=== PATIENT | male | born 1990 | race Two or more races ===

== ENCOUNTER 2018-11-13 21:28 | Emergency (ER) | payer OTHER ==
[~2018-11-13] VITALS: Ht 180.3 cm; Wt 113.4 kg
--- NOTE | 2018-11-13 21:25 | NUR ---
Note undone in EDM - 11/13/18 at 2251 by KASI ED Nurse Note: pt brought in by [employer] and [employer] team, c/o SI, per [employer] team statement, pt wanted to kill himself via shooting himself w/ pt's dad scooter. pt states he has hx suicidal attempt which was last year. pt currently is homeless but pt used to live with pt's mother 3 days ago. pt AA&ox4, gcs=15, irritable, voicing SI, denies HI/VH/AH, skin warm and dry, resp even and unlabored on RA, -n/v/d, ambulates w/ steady gait, vSS, will cont monitor.
[~2018-11-13 21:28] MED LIST: ALPRAZOLAM0.5 MG PO; SEROQUEL400 MG ORAL; TRAZODONE HCL100 MG ORAL; WELLBUTRIN SR150 M1 PO
--- NOTE | 2018-11-13 21:28 | NUR ---
ED Nurse Note: pt brought in by [employer] and [employer] team, c/c SI. Per [employer] team statement, pt called 911 because pt had suicidal ideation and wanted to kill himself via shooting himself w/ pt's dad scooter. pt states he has hx suicidal attempt which was last year by "taking bunch of pills". pt currently is homeless but per [employer] team, pt used to live with pt's mother 3 days ago and ran away. pt AA&ox4, gcs=15, irritable but calm and cooperative, voicing SI, denies HI/VH/AH, skin warm and dry, resp even and unlabored on RA, -n/v/d, ambulates w/ steady gait, vSS, sinus tach on court recording monitor, will cont monitor.
--- NOTE | 2018-11-13 21:44 | Emergency Room Report ---
History of Present Illness General Chief Complaint: Behavioral Complaint Source: Patient, Caregiver, Law Enforcement Present Illness HPI This is a 28-year-old male with history of anxiety and also drug abuse. He presents with chief complaint of suicidal thoughts. Patient is homeless and called [address] He told police that he is suicidal want to kill himself. He said that he will take his father's gun and go to [facility] shoot himself. He was initially placed on a 5150 hold. During the intake process at the station, he became agitated and was banging his head against the stretcher and was screaming. They brought him here instead. Patient said that he wanted to go use the restroom but they would not let him so he became agitated. Patient is calm now. Does express suicidal thoughts. Denies any homicidal thought. Denies any hallucination or delusion. Allergies: Coded Allergies: No Known Allergies (Unverified , 11/13/18) Patient History Past Medical History: see triage record, old chart reviewed, psych hx Past Surgical History: none Family History: none Social History: tobacco use, ETOH, drug use, lives alone Immunizations: other Reviewed Nursing Documentation: PMH: Agreed; PSxH: Agreed Nursing Documentation-PMH Past Medical History: No History, Except For Review of Systems ENT: Denies: sore throat Cardiovascular: Denies: chest pain, palpitations Gastrointestinal/Abdominal: Denies: nausea, vomiting, diarrhea Musculoskeletal: Denies: back problems Skin: Denies: rash Psychiatric: Reports: prior hx, anxiety, suicidal/homicidal ideations Neurological: Denies: BUCKNER, seizures All Other Systems: negative except mentioned in HPI Physical Exam Vital Signs Date Time Temp Pulse Resp B/P (MAP) Pulse Ox O2 Delivery O2 Flow Rate FiO2 11/13/18 21:20 98.6 104 16 163/107 98 Room Air vitals with high blood pressure Sp02 EP Interpretation: reviewed, normal General Appearance: alert/responsive, no apparent distress, non-toxic Head: normocephalic, atraumatic Eyes: PERRL, EOMI ENT: oropharynx normal Neck: supple/symm/no masses Respiratory: effort normal, no rhonchi, no wheezing Cardiovascular: no murmur, gallop, rub Gastrointestinal: non-tender, no mass, non-distended, no rebound/guarding, normal bowel sounds Musculoskeletal: gait & station normal Neurologic: oriented x3, sensory intact, motor strength/tone normal Skin: no rash, normal palpation Medical Decision Making Diagnostic Impression: Primary Impression: Suicidal behavior Qualified Codes: R46.89 - Other symptoms and signs involving appearance and behavior Additional Impression: Methamphetamine abuse ER Course Patient with suicidal thoughts with specific plan. He is calm here. Did not need to be on restraint here. He is currently on a hold with a 5150 by police. He is medically cleared for psychiatric transfer. Lab Results Impression labs unremarkable Last Vital Signs Date Time Temp Pulse Resp B/P (MAP) Pulse Ox O2 Delivery O2 Flow Rate FiO2 11/13/18 21:20 98.6 104 16 163/107 98 Room Air Status: improved Disposition: XFER TO PSYCH HOSP/UNIT Condition: Stable Shree Hansen MD Nov 13, 2018 21:44
[2018-11-13 22:00] VITALS: BP 144/99
[2018-11-13] MEDS ORDERED: DiphenhydrAMINE 50mg/ml Inj IM ONE (22:15)
[2018-11-13] MEDS ORDERED: Haloperidol 5mg/ml Inj IM ONE (22:15)
--- NOTE | 2018-11-13 22:17 | NUR ---
ED Nurse Note: pt belongings in locker No. 1 and 2.
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
[2018-11-13 22:21] LABS: BASOPHILS % (AUTO) 1.5 % (0.0-2.0); EOSINOPHILS % (AUTO) 2.1 % (0.0-3.0); HEMATOCRIT 42.5 % (42.0-52.0); HEMOGLOBIN 14.5 G/DL (14.2-18.0); MEAN CORPUSCULAR VOLUME 84 FL (80-99); MONOCYTES % (AUTO) 7.4 % (1.0-10.0); NEUTROPHILS % (AUTO) 58.1 % (45.0-75.0); PLATELET COUNT 416 K/UL (150-450); RED BLOOD COUNT 5.06 M/UL (4.70-6.10); RED CELL DISTRIBUTION WIDTH 12.8 % (11.6-14.8); WHITE BLOOD COUNT 16.2 K/UL (4.8-10.8)
[2018-11-13 22:31] LABS: ANION GAP 14 mmol/L (5-15); BLOOD UREA NITROGEN 15 mg/dL (7-18); CALCIUM 9.3 MG/DL (8.5-10.1); CARBON DIOXIDE 24 MMOL/L (21-32); CHLORIDE 100 MMOL/L (98-107); CREATININE 1.1 MG/DL (0.55-1.30); POTASSIUM 3.6 MMOL/L (3.5-5.1); SODIUM 138 MMOL/L (136-145)
[2018-11-13 22:35] LABS: ALANINE AMINOTRANSFERASE 65 U/L (12-78); ALBUMIN 3.7 G/DL (3.4-5.0); ALBUMIN/GLOBULIN RATIO 0.8 (1.0-2.7); ALKALINE PHOSPHATASE 110 U/L (46-116); ASPARTATE AMINO TRANSFERASE 32 U/L (15-37); BILIRUBIN,TOTAL 0.5 MG/DL (0.2-1.0)
[2018-11-13 22:42] LABS: APPEARANCE,URINE SLIGHTLY CLOUDY; BILIRUBIN, URINE NEGATIVE (NEGATIVE); COLOR,URINE AMBER; GLUCOSE, URINE (UA) NEGATIVE (NEGATIVE); KETONES,URINE 1+ (NEGATIVE); LEUKOCYTE ESTERASE ,URINE 1+ (NEGATIVE); NITRITE,URINE NEGATIVE (NEGATIVE); PH,URINE 5 (4.5-8.0); PROTEIN,URINE 1+ (NEGATIVE); UROBILINOGEN,URINE 1 MG/DL (0.0-1.0)
--- NOTE | 2018-11-13 22:54 | NUR ---
ED Nurse Note: pt provided w/ warm blanket for comfort, given sandwich and juice.
--- NOTE | 2018-11-13 23:01 | NUR ---
ED Nurse Note: report given Cherry STEVENS and endorsed care, pt sleeping at this time, vss, resp even and unlabored on RA.
[2018-11-14] VITALS: BP 137/94
--- NOTE | 2018-11-14 01:05 | NUR ---
ED Nurse Note: PT IS COOPERATIVE AND ASLEEP IN BED. OFFERED PT A SANDWHICH AND REFUSED AT THE MOMENT
--- NOTE | 2018-11-14 01:40 | NUR ---
ED Nurse Note: ATTEMPTED TO CALL [facility], NO ANSWER. WILL REATTEMPT
--- NOTE | 2018-11-14 01:50 | NUR ---
ED Nurse Note: TELEPHONE REPORT GIVEN TO BARBIE FROM [employer]
[2018-11-14 02:42] VITALS: BP 112/71
--- NOTE | 2018-11-14 02:42 | NUR ---
ED Nurse Note: [facility] at bedside, pt aox4, pt skin intact, pt shows no acute signs odf distress. pt is clam adn cooperative. pt iv site removed, all pt belongings given to [facility].
== END 2018-11-14 02:42 ==
LOC: EDBD 21:28 → EMR 22:43
DX: R45.851 Suicidal ideations (principal); F15.10 Other stimulant abuse, uncomplicated; Z59.0 Homelessness; F41.9 Anxiety disorder, unspecified; R45.850 Homicidal ideations
CPT/HCPCS: 36415; 80053; 80307; 80329; 81003; 85025; 96372; 99285; J1200; J1630

== ENCOUNTER 2019-12-10 02:30 | Emergency (ER) | payer OTHER ==
[2019-12-10] VITALS (8 sets, daily range): BP systolic 76–139; BP diastolic 61–85
[~2019-12-10] VITALS: Ht 175.3 cm; Wt 90.7 kg
--- NOTE | 2019-12-10 02:42 | NUR ---
ED Nurse Note: Patient MIRIAM [id number] from street c/o SI. Per EMS, patient wants to kill himself by injecting himself with windex. Pt also reports using of heroin. Denies homicidal ideation. Has hx of bipolar. Pt is cooperative and non combative. Pt is on 5150 hold per [employer]. Suicide precaution observed. ERMD at bedside.
--- NOTE | 2019-12-10 02:45 | NUR ---
ED Nurse Note: Pt belongings was placed in Locker #1.
--- NOTE | 2019-12-10 02:46 | Emergency Room Report ---
History of Present Illness General Chief Complaint: Behavioral Complaint Source: Patient, EMS, Law Enforcement Present Illness HPI This is a 29-year-old male with a history of bipolar. He also has a history of heroin abuse. Patient presents with chief complaint of suicidal thoughts. He called [address] He said that he want to kill himself by injecting himself with Windex. Because of that, please place him on a 5150 hold. Patient denies any auditory elucidation. He denies any homicidal thoughts. He has suicidal thoughts. Admits to using heroin. Patient claimed that he injected Windex into his vein. Allergies: Coded Allergies: No Known Allergies (Unverified , 11/13/18) Patient History Past Medical History: see triage record, old chart reviewed, bipolar Past Surgical History: none Family History: none Social History: drug use Immunizations: other Reviewed Nursing Documentation: PMH: Agreed; PSxH: Agreed Nursing Documentation-PMH History Of Psychiatric Problem: Yes - bipolar Review of Systems ENT: Denies: sore throat Cardiovascular: Denies: chest pain, palpitations Gastrointestinal/Abdominal: Denies: nausea, vomiting, diarrhea Musculoskeletal: Denies: back problems Skin: Denies: rash Neurological: Denies: BUCKNER, seizures All Other Systems: negative except mentioned in HPI Physical Exam Vital Signs Date Time Temp Pulse Resp B/P (MAP) Pulse Ox O2 Delivery O2 Flow Rate FiO2 12/10/19 02:33 98.4 102 15 132/84 (100) 99 Room Air Vitals normal Sp02 EP Interpretation: reviewed, normal General Appearance: alert/responsive, no apparent distress, non-toxic Head: normocephalic, atraumatic Eyes: PERRL, EOMI ENT: oropharynx normal Neck: supple/symm/no masses Respiratory: effort normal, no rhonchi, no wheezing Cardiovascular: no murmur, gallop, rub Gastrointestinal: non-tender, no mass, non-distended, no rebound/guarding, normal bowel sounds Musculoskeletal: gait & station normal Neurologic: oriented x3, sensory intact, motor strength/tone normal Skin: no rash, normal palpation Medical Decision Making Diagnostic Impression: Primary Impression: Suicidal ideation Additional Impressions: Heroin abuse Methamphetamine abuse ER Course Patient presents with suicidal thoughts and questionable suicidal attempt. Patient is currently on a 5150 hold. Once he is medically cleared he will be sent to a psychiatric facility. Patient been comfortable in the ER. He ate and and drink without any problem. He slept. He is medically clear for psychiatric evaluation. Last Vital Signs Date Time Temp Pulse Resp B/P (MAP) Pulse Ox O2 Delivery O2 Flow Rate FiO2 12/10/19 02:33 98.4 102 15 132/84 (100) 99 Room Air Status: improved Disposition: PSYCH HOSP/UNIT Condition: Stable Shree Hansen MD December 10, 2019 02:46
--- NOTE | 2019-12-10 03:00 | NUR ---
ED Nurse Note: IV line established. Blood and urine specimen collected and sent to lab.
[2019-12-10 03:43] LABS: BASOPHILS % (AUTO) 1.5 % (0.0-2.0); HEMATOCRIT 40.5 % (42.0-52.0); HEMOGLOBIN 14.4 G/DL (14.2-18.0); LYMPHOCYTES % (AUTO) 37.6 % (20.0-45.0); MEAN CORPUSCULAR VOLUME 82 FL (80-99); MONOCYTES % (AUTO) 9.1 % (1.0-10.0); NEUTROPHILS % (AUTO) 48.8 % (45.0-75.0); PLATELET COUNT 289 K/UL (150-450); RED BLOOD COUNT 4.96 M/UL (4.70-6.10); RED CELL DISTRIBUTION WIDTH 11.1 % (11.6-14.8); WHITE BLOOD COUNT 11.7 K/UL (4.8-10.8)
[2019-12-10 03:45] LABS: APPEARANCE,URINE CLEAR; BILIRUBIN, URINE NEGATIVE (NEGATIVE); GLUCOSE, URINE (UA) NEGATIVE (NEGATIVE); KETONES,URINE NEGATIVE (NEGATIVE); LEUKOCYTE ESTERASE ,URINE NEGATIVE (NEGATIVE); NITRITE,URINE NEGATIVE (NEGATIVE); PH,URINE 5 (4.5-8.0); PROTEIN,URINE 1+ (NEGATIVE); UROBILINOGEN,URINE 1 MG/DL (0.0-1.0)
[2019-12-10 03:49] LABS: COLOR,URINE YELLOW
[2019-12-10 04:11] LABS: ANION GAP 11 mmol/L (5-15); BLOOD UREA NITROGEN 17 mg/dL (7-18); CALCIUM 8.9 MG/DL (8.5-10.1); CARBON DIOXIDE 27 MMOL/L (21-32); CHLORIDE 104 MMOL/L (98-107); CREATININE 1.2 MG/DL (0.55-1.30); POTASSIUM 3.4 MMOL/L (3.5-5.1); SODIUM 142 MMOL/L (136-145)
[2019-12-10 04:23] LABS: ALANINE AMINOTRANSFERASE 66 U/L (12-78); ALBUMIN 4.2 G/DL (3.4-5.0); ALKALINE PHOSPHATASE 86 U/L (46-116); ASPARTATE AMINO TRANSFERASE 48 U/L (15-37)
--- NOTE | 2019-12-10 04:30 | NUR ---
Spoke Letha at [facility] [phone]-will have beds in a few hours. Face sheet, the Dinh mckeon MD dictation and summary report raxed to [phone] as requested.
--- NOTE | 2019-12-10 05:30 | NUR ---
ED Nurse Note: Pt requested for snacks, snacks provided.
--- NOTE | 2019-12-10 06:56 | NUR ---
HAND-OFF: Report given to Cherry STEVENS. Endorsed plan of care.
--- NOTE | 2019-12-10 06:57 | NUR ---
ED Nurse Note: Report received from RODNEY Patel. Pt is currently resting in bed, NAD. pt reports he still wants to hurt himself but has no current plan. pt awaiting transport
--- NOTE | 2019-12-10 08:32 | NUR ---
ED Nurse Note: meal ordered for patient
--- NOTE | 2019-12-10 08:33 | NUR ---
ED Nurse Note: Pt calm and asleep in bed.
--- NOTE | 2019-12-10 09:47 | NUR ---
ED Nurse Note: pt was given milk, pt is calm, cooperative. denies SI at this time.
--- NOTE | 2019-12-10 10:33 | NUR ---
ED Nurse Note: Pt is compliant, able to urinate in urinary bottle. NAD noted, pt is resting in bed comfortably.
--- NOTE | 2019-12-10 10:51 | NUR ---
ED Nurse Note: Pt able to ambulated to restroom with steady gait.
--- NOTE | 2019-12-10 11:00 | NUR ---
[facility] NO BEDS [facility] NO BEDS
--- NOTE | 2019-12-10 11:04 | NUR ---
SPOKE TO TARSHA AT [facility] BACK SOON THE BED [facility]
--- NOTE | 2019-12-10 11:51 | NUR ---
ED Nurse Note: Pt given lunch tray
--- NOTE | 2019-12-10 13:25 | NUR ---
HAND-OFF: Report given to RODNEY Nesbitt.
--- NOTE | 2019-12-10 13:27 | NUR ---
ED Nurse Note: Received patient from room 07, RODNEY Carey gave report. Patient AAO x, VSS at this time, used bathroom with steady gait, milk provided.
--- NOTE | 2019-12-10 13:52 | NUR ---
ED Nurse Note: Pt asleep comfortably and easy to arousal. Denies chest pain, SOB, N/V. VVS and continue to monitor.
--- NOTE | 2019-12-10 15:50 | NUR ---
patient has been accepted at [facility] by dr avitai for report call [phone] @[phone] [facility] @[phone]
--- NOTE | 2019-12-10 18:13 | NUR ---
ED Nurse Note: Pt requests several cans of sodas states feel better.
--- NOTE | 2019-12-10 18:36 | NUR ---
ED Nurse Note: Patient was transfered to [facility] by [facility], with all belongings. Patient AAO x4, VSS at this time, IV access was DC by RODNEY Shepherd request.
== END 2019-12-10 18:36 ==
LOC: EDBD 02:30 → EMR 02:49
DX: R45.851 Suicidal ideations (principal); F11.10 Opioid abuse, uncomplicated; F15.10 Other stimulant abuse, uncomplicated; F31.9 Bipolar disorder, unspecified
CPT/HCPCS: 36415; 80053; 80307; 81003; 85025; G0480; G0481; Z7502; 99285